=== PATIENT | female | born 1975 | race Caucasian/White ===

== ENCOUNTER 2021-04-22 17:09 | Emergency (ER) | payer SELFPAY ==
[2021-04-22 17:59] LABS: HEMOGLOBIN 13.7 gm/dl (12.3-15.3); RED BLOOD COUNT 4.28 M/UL (4.00-5.10); WHITE BLOOD COUNT 5.3 K/UL (4.5-11.0)
[2021-04-22 19:11] LABS: BUN/CREATININE RATIO 14 (0-10)
== END 2021-04-22 20:25 | disposition home or self-care (01) ==
LOC: ER1 17:09
PROVIDERS: Emergency Medicine
DX: R10.9 Unspecified abdominal pain (principal)
CPT/HCPCS: 80053; 81001; 82550; 82553; 83690; 83874; 84484; 85025; 96374; 96375; 96376; 99284; J2270; J2405; Q9967

== ENCOUNTER → 2021-08-29 | Outpatient (CLI) | payer SELFPAY | LOC: RAD 16:16 | DX: U07.1 COVID-19 (principal) | CPT/HCPCS: 71046 ==